=== PATIENT | female | born 1985 | race Caucasian/White ===

== ENCOUNTER 2017-12-09 09:15 | Emergency (ER) | payer OTHER ==
[2017-12-09 09:30] VITALS: BP 109/80
--- NOTE | 2017-12-09 10:37 | ED ---
Respiratory - HPI Summary HPI Summary: 32-year-old female presents with worsening cough and shortness of breath. States she was evaluated by her primary care provider over a week ago and diagnosed with flu based on her symptoms. She was given Tamiflu and completed the entire course. She is complaining of general malaise, fatigue, mild nasal congestion, shortness of breath, chest tightness, and a productive cough for green sputum. Denies fever, chills, sore throat, ear pain or pressure, chest pain, abdominal pain, nausea, or vomiting. She is a 1 1/2 PPD smoker. - History of Current Complaint Chief Complaint: UCRespiratory Stated Complaint: CHEST CONGESTION COUGH Time Seen by Provider: 12/09/17 10:14 Hx Obtained From: Patient Onset/Duration: Gradual Onset, Lasting Weeks - 1 Pain Intensity: 8 Character: Cough (Productive) Sputum Amount: Small Sputum Color: Green Aggravating Factor(s): URI Alleviating Factor(s): Nothing Associated Signs and Symptoms: URI, Dyspnea - Allergy/Home Medications Allergies/Adverse Reactions: Allergies Allergy/AdvReac Type Severity Reaction Status Date / Time morphine Allergy Itching Verified 12/09/17 09:31 Home Medications: Home Medications Acetaminophen [Masophen] 2,000 mg PO ONCE PRN 12/09/17 [History Confirmed ] buPROPion HCl [Wellbutrin Sr] 100 mg PO BID 12/09/17 [History Confirmed 12/09/17 ] lamoTRIgine [Lamictal] 100 mg PO DAILY 12/09/17 [History Confirmed 12/09/17] PMH/Surg Hx/FS Hx/Imm Hx Previously Healthy: Yes Psychiatric History: Reports: Hx Depression - Surgical History Surgery Procedure, Year, and Place: xc-section x2, 2 umbilical hernia repair, hysterectomy Infectious Disease History: No Infectious Disease History: Denies: Traveled Outside the [place] in Last 30 Days - Social History Alcohol Use: None Substance Use Type: Reports: Marijuana Smoking Status (MU): Heavy Every Day Tobacco Smoker Amount Used/How Often: 1.5 ppd Have You Smoked in the Last Year: Yes Review of Systems Positive: Fatigue, Other - General malaise Positive: Nasal Discharge Cardiovascular: Negative Positive: Shortness Of Breath, Cough Gastrointestinal: Negative Skin: Negative All Other Systems Reviewed And Are Negative: Yes Physical Exam Triage Information Reviewed: Yes Vital Signs On Initial Exam: Initial Vitals Temp Pulse Resp BP Pulse Ox 98 F 93 18 109/80 100 12/09/17 09:24 12/09/17 09:24 12/09/17 09:24 12/09/17 09:24 12/09/17 09:24 Vital Signs Reviewed: Yes Appearance: Positive: No Pain Distress, Well-Nourished Skin: Positive: Warm, Skin Color Reflects Adequate Perfusion, Dry Eyes: Positive: Conjunctiva Clear. Negative: Discharge ENT: Positive: Hearing grossly normal, Pharyngeal erythema - Mild with cobblestoning, Nasal congestion, TMs normal, Uvula midline. Negative: Nasal drainage, Tonsillar swelling, Tonsillar exudate, Sinus tenderness Neck: Positive: Supple, Nontender, No Lymphadenopathy Respiratory/Lung Sounds: Positive: Clear to Auscultation, Breath Sounds Present Cardiovascular: Positive: RRR, S1, S2. Negative: Murmur Abdomen Description: Positive: Nontender, No Organomegaly, Soft Neurological: Positive: Alert, Oriented to Person Place, Time Diagnostics - Vital Signs Vital Signs Temp Pulse Resp BP Pulse Ox 12/09/17 09:24 98 F 93 18 109/80 100 - Laboratory Lab Statement: Any lab studies that have been ordered have been reviewed, and results considered in the medical decision making process. - Radiology No standard instances Radiology Interpretation Completed By: Radiologist - Order Information: CHEST PA LAT 2 [facility] Accession Number: [id number] CPT: 47471 HISTORY: cough, SOB COMPARISONS: None VIEWS: 4: Frontal dual-energy and lateral views of the chest. FINDINGS: CARDIOMEDIASTINAL SILHOUETTE: The cardiomediastinal silhouette is normal. ALBERTO: The alberto are normal. PLEURA: The costophrenic angles are sharp. No pleural abnormalities are noted. LUNG PARENCHYMA: The lungs are clear. ABDOMEN: The upper abdomen is clear. There is no subphrenic gas. BONES AND SOFT TISSUES: No bone or soft tissue abnormalities are noted. OTHER: None. IMPRESSION: NO ACTIVE CARDIOPULMONARY DISEASE. Disposition - Course Course Of Treatment: 32 year old female 1 1/2 PPD smoker with over 1 week of flu -like symptoms complaining of a worsening productive cough and shortness of breath. She was treated with Tamiflu by her PCP. Afebrile. VSS. Her exam was consistent with URI vs acute bronchitis. CXR without evidence of acute cardiopulmonary pathology. Considering her smoking history and worsening cough, will treat with course of azithromycin. She is to f/u with PCP in 7 days if symptoms persist. Warning symptoms reviewed. Verbalizes understanding and agrees with POC. - Diagnoses Provider Diagnoses: Acute bronchitis Discharge - Sign-Out/Discharge Documenting (check all that apply): Patient Departure All imaging exams completed and their final reports reviewed: Yes - Discharge Plan Condition: Stable Disposition: HOME Prescriptions: Albuterol HFA INHALER* [Ventolin HFA Inhaler*] 2 puff INH Q4H PRN #1 mdi PRN Reason: Sob/Wheezing Azithromyxin BAKARI (NF) [Z-Bakari (Zithromax) 250 mg tabs #6] 2 tab PO .TODAY, THEN 1 DAILY #6 tab Patient Education Materials: Acute Bronchitis (ED) Referrals: Martha Guillen PA [Primary Care Provider] - 7 Days (If no improvement.) Additional Instructions: The chest x-ray performed in the clinic today did not show any evidence of pneumonia. We will treat you for an acute bronchitis. Start azithromycin 2 tabs today then 1 tablet for the next 4 days. Recommend using a saline rinse kit such as Netti Pot or NeilMed at least twice a day to help with nasal congestion. I'm giving an albuterol inhaler to use for any shortness of breath. Take 2 puffs every 4-6 hours as needed for shortness of breath or wheezing. Follow-up with your primary care provider in one week if symptoms persist. Seek immediate medical attention in the emergency room if you develop fever greater than 100.5 F, develop any chest pain, have increased shortness of breath despite using the albuterol inhaler, or any worsening of symptoms. - Billing Disposition and Condition Condition: STABLE Disposition: Home
--- NOTE | 2017-12-09 10:54 | RAD ---
HISTORY: cough, SOB COMPARISONS: None VIEWS: 4: Frontal dual-energy and lateral views of the chest. FINDINGS: CARDIOMEDIASTINAL SILHOUETTE: The cardiomediastinal silhouette is normal. JUNI: The juni are normal. PLEURA: The costophrenic angles are sharp. No pleural abnormalities are noted. LUNG PARENCHYMA: The lungs are clear. ABDOMEN: The upper abdomen is clear. There is no subphrenic gas. BONES AND SOFT TISSUES: No bone or soft tissue abnormalities are noted. OTHER: None. IMPRESSION: NO ACTIVE CARDIOPULMONARY DISEASE.
== END 2017-12-09 11:26 | disposition home or self-care (01) ==
LOC: UCEAST 09:15
DX: J20.9 Acute bronchitis, unspecified (principal); F17.210 Nicotine dependence, cigarettes, uncomplicated; Z88.5 Allergy status to narcotic agent
CPT/HCPCS: 71046; 99212; G0463

== ENCOUNTER 2018-04-02 09:14 | Emergency (ER) | payer OTHER | END 2018-04-02 09:24 | disposition left against medical advice (07) | LOC: UCEAST 09:14 | DX: Z53.21 Procedure and treatment not carried out due to patient leaving prior to being seen by health care provider (principal) ==

== ENCOUNTER 2018-07-24 19:38 | Emergency (ER) | payer OTHER ==
--- NOTE | 2018-07-24 19:41 | UC ---
Lower Extremity/Ankle HPI - HPI Summary HPI Summary: 33 yo female presents with RIGHT ankle and foot pain. She tells me that about 1 hour [employer] she was playing kickball and was running when she stepped into a hole in the ground and twisted her right ankle. Has had pain medially since with mild swelling. She tried to bear weight, but pain was too significant. She applied ice and her pain is improving. She denies numbness or tingling. - History of Current Complaint Stated Complaint: FOOT INJURY Time Seen by Provider: 07/24/18 19:41 Hx Obtained From: Patient Onset/Duration: Sudden Onset Severity Initially: Severe Severity Currently: Severe Pain Intensity: 9 Pain Scale Used: 0-10 Numeric Aggravating Factor(s): Standing, Ambulation Alleviating Factor(s): Rest, Elevation, Ice Able to Bear Weight: No - Allergies/Home Medications Allergies/Adverse Reactions: Allergies Allergy/AdvReac Type Severity Reaction Status Date / Time morphine Allergy Itching Verified 07/24/18 19:50 Home Medications: Home Medications Omeprazole 20 mg PO DAILY 07/24/18 [History Confirmed 07/24/18] clonazePAM TAB(*) [Klonopin TAB(*)] 0.5 mg PO BID PRN 07/24/18 [History Confirmed 07/24/18] PMH/Surg Hx/FS Hx/Imm Hx Respiratory History: Asthma Psychological History: Anxiety, Depression - Surgical History Surgical History: Yes Surgery Procedure, Year, and Place: xc-section x2, 2 umbilical hernia repair, hysterectomy - Family History Known Family History: Positive: Non-Contributory - Social History Lives: With Family Alcohol Use: None Substance Use Type: Marijuana Smoking Status (MU): Heavy Every Day Tobacco Smoker Amount Used/How Often: 1.5 ppd Have You Smoked in the Last Year: Yes Household Exposure Type: Cigarettes Review of Systems All Other Systems Reviewed And Are Negative: Yes Constitutional: Positive: Negative Skin: Positive: Negative Respiratory: Positive: Negative Cardiovascular: Positive: Negative Musculoskeletal: Positive: Other: - Right foot and ankle pain Neurological: Positive: Negative Psychological: Positive: Negative Physical Exam - Summary Physical Exam Summary: GENERAL: NAD. WDWN. No pain distress. SKIN: No rashes, sores, lesions, or open wounds. CHEST: No accessory muscle use. Breathing comfortably and in no distress. CV: Pulses intact PT and DP. Cap refill <2seconds MSK: RIGHT ANKLE: Mild TTP at medial malleolus and arch of foot. No pain with inversion, but significant pain with eversion. Mild edema at medial malleolus. Negative talar tilt. No increased laxity. NEURO: Alert. Sensations intact and symmetric B/L LEs PSYCH: Age appropriate behavior. Triage Information Reviewed: Yes Vital Signs: Vital Signs: Temp Pulse Resp BP Pulse Ox 99.4 F 87 16 118/89 99 07/24/18 19:45 07/24/18 19:45 07/24/18 19:45 07/24/18 19:45 07/24/18 19:45 Vital Signs Reviewed: Yes Lower Extremity Course/Dx - Course Course Of Treatment: XR ankle and foot: No radiologist reading after 1800, therefore wet read by myself is negative for fracture. Suspect ankle sprain. Advised to RICE and take ibuprofen/tylenol as directed for discomfort. Gel splint applied and crutches given for support and comfort. If symptoms do not improve in 5-7 days, recommend f/u with Ortho for a recheck. - Differential Dx/Diagnosis Provider Diagnosis: Right ankle sprain Discharge - Sign-Out/Discharge Documenting (check all that apply): Patient Departure All imaging exams completed and their final reports reviewed: No - Discharge Plan Condition: Stable Disposition: HOME Patient Education Materials: Ankle Sprain (ED) Referrals: Martha Guillen PA [Primary Care Provider] - Moshe Srivastava MD [Medical Doctor] - If Needed Additional Instructions: If you develop a fever, shortness of breath, chest pain, new or worsening symptoms - please call your PCP or go to the ED immediately. 1) Your x-rays appears normal today, but the radiologist will read them officially in the morning and we will call you with any changes 2) Rest, Ice, and elevate your ankle intermittently throughout the day 3) Use the gel splint and crutches as needed for support and comfort 4) If your symptoms do not improve in 5-7 days, please call Orthopedics at the number below to schedule an appointment for a recheck - Billing Disposition and Condition Condition: STABLE Disposition: Home
[2018-07-24 19:50] VITALS: BP 118/89
--- NOTE | 2018-07-25 09:30 | UC ---
- Progress Note Progress Note: XR foot: IMPRESSION: NO EVIDENCE FOR FRACTURE, IF THE PATIENT'S SYMPTOMS PERSIST RECOMMEND FOLLOW-UP IMAGING. XR ankle: IMPRESSION: SOFT TISSUE SWELLING, NO FRACTURE IS SEEN. No change in plan of care Course/Dx - Diagnoses Provider Diagnoses: Right ankle sprain Discharge - Sign-Out/Discharge Documenting (check all that apply): Post-Discharge Follow Up All imaging exams completed and their final reports reviewed: Yes - Discharge Plan Condition: Stable Disposition: HOME Patient Education Materials: Ankle Sprain (ED) Referrals: Moshe Srivastava MD [Medical Doctor] - If Needed Martha Guillen PA [Primary Care Provider] - Additional Instructions: If you develop a fever, shortness of breath, chest pain, new or worsening symptoms - please call your PCP or go to the ED immediately. 1) Your x-rays appears normal today, but the radiologist will read them officially in the morning and we will call you with any changes 2) Rest, Ice, and elevate your ankle intermittently throughout the day 3) Use the gel splint and crutches as needed for support and comfort 4) If your symptoms do not improve in 5-7 days, please call Orthopedics at the number below to schedule an appointment for a recheck - Billing Disposition and Condition Condition: STABLE Disposition: Home
== END 2018-07-24 20:45 | disposition home or self-care (01) ==
LOC: UCEAST 19:38
DX: S93.401A Sprain of unspecified ligament of right ankle, initial encounter (principal); X50.1XXA Overexertion from prolonged static or awkward postures, initial encounter; Y93.6A Activity, physical games generally associated with school recess, summer camp and children; Y92.9 Unspecified place or not applicable; F41.9 Anxiety disorder, unspecified; Z88.5 Allergy status to narcotic agent; F17.200 Nicotine dependence, unspecified, uncomplicated
CPT/HCPCS: 99213; G0463